=== PATIENT | female | born 1975 | race Caucasian/White ===

== ENCOUNTER → 2023-10-21 13:40 | Outpatient (REF) | payer BC, SELFPAY | LOC: RAD 13:40 | PROVIDERS: ATTENDING PHYSICIAN Nurse Practitioner Family; FAMILY PHYSICIAN Nurse Practitioner Adult Health | DX: R05.3 Chronic cough (principal) | CPT/HCPCS: 71046 ==

== ENCOUNTER 2024-09-11 06:28 | Day surgery (SDC) | payer BC, SELFPAY | END 2024-09-11 11:23 | disposition home or self-care (01) | LOC: GI 06:28 | PROVIDERS: ATTENDING PHYSICIAN Internal Medicine Gastroenterology | DX: Z12.11 Encounter for screening for malignant neoplasm of colon (principal); K63.5 Polyp of colon; K57.30 Diverticulosis of large intestine without perforation or abscess without bleeding; K22.89 Other specified disease of esophagus; K31.7 Polyp of stomach and duodenum; K31.89 Other diseases of stomach and duodenum; R05.3 Chronic cough | CPT/HCPCS: 45380; 43239; 88305; 88342 ==

== ENCOUNTER → 2025-03-08 11:40 | Outpatient (REF) | payer BC, SELFPAY | LOC: WDC 11:40 | PROVIDERS: ATTENDING PHYSICIAN Obstetrics & Gynecology Gynecology; FAMILY PHYSICIAN Nurse Practitioner Adult Health | DX: Z12.31 Encounter for screening mammogram for malignant neoplasm of breast (principal) | CPT/HCPCS: 77063; 77067 ==